=== PATIENT | male | born 1990 | race Caucasian/White ===

== ENCOUNTER 2019-05-16 08:19 | Inpatient (IN) ==
--- NOTE | 2019-05-16 08:51 | PROVIDER DOCUMENTATION ---
HPI-General Adult - General Chief Complaint: Abdominal Pain Stated Complaint: STOMACH PAIN Time Seen by Provider: 05/16/19 08:47 Source: patient, family Allergies/Adverse Reactions: Patient Allergies Allergy/AdvReac Type Severity Reaction Status Date / Time amoxicillin trihydrate * Allergy Severe ANAPHYLAXIS Verified 08/25/12 15:47 [From Augmentin] cefaclor [From Ceclor] Allergy Severe ANAPHYLAXIS Verified 08/25/12 15:48 metaproterenol sulfate * Allergy Severe RASH Verified 08/25/12 15:48 [From Alupent] metoclopramide HCl * Allergy Severe Unknown Verified 08/25/12 16:09 [From Reglan] potassium clavulanate * Allergy Severe ANAPHYLAXIS Verified 08/25/12 15:47 [From Augmentin] Home Medications: Home Medication List Medication Instructions Recorded Confirmed Last Taken Type Ondansetron Odt [Zofran 4 mg Odt] 4 mg PO Q6H PRN PRN 05/16/19 05/16/19 Unknown History - History of Present Illness -Gen Adult Nature of Presenting Problems: Pt. is 29 yom that presents with c/o abd pain with N/V/D. Pt. reports he was seen last night at [facility] and they gave him 2 bags of fluid and sent him home. Pt. reports a Hx of Lupus and gastroparesis. Pt. denies any other complaints. Location of Pain/Injury: reports: abdomen. denies: none, head, face, mouth, neck, chest, upper extremity, hand(s), back, pelvis, genitalia, lower extremity, feet, upper body, lower body, generalized, other Pain Radiation: reports: no radiation. denies: arm(s), back, buttocks, chest, epigastric, feet, groin, jaw, flank (L), legs (lower), LLQ, LUQ, neck, periumbilical, flank (R), RLQ, RUQ, shoulder(s), scapula, scrotal, sternal notch, suprapubic, legs (upper), urethral, vaginal, other Quality of Pain: reports: aching. denies: burning, pressure, tightness Severity: reports: moderate. denies: mild, severe Onset/Duration: reports: gradual, 2 days ago Timing: reports: still present. denies: improving, intermittent, getting worse Context/Activities at Onset: reports: none. denies: light activity, moderate activity, vigorous activity, recent emotional stress, recent physical stress, recent trauma history, possible bad food, cold exposure, eating, out of country travel, rest, sleep, sexual activity, other Modifying Factors: improves with: nothing Associated Symptoms: reports: diarrhea, nausea, vomiting. denies: denies symptoms, anxiety, arm pain, back/neck pain, chest pain, constipation, cough, diaphoresis, dizziness, EENT symptoms, fatigue, fever/chills, genitourinary problems, headaches, heartburn, joint pain, loss of appetite, malaise, muscle aches, sinus congestion/drainage, rash, seizure, shortness of breath, sensory/motor loss, pain with inspiration, swelling/mass in abdomen, syncope, weakness, trouble walking, other Similar Symptoms Previously?: Yes Recently seen or treated by another doctor?: Yes Review of Systems - Adult - REVIEW OF SYSTEMS - ADULT Constitutional: reports: no symptoms reported Eyes: reports: no symptoms reported Ears, Nose, Mouth & Throat: reports: no symptoms reported Cardiovascular: reports: no symptoms reported Respiratory: reports: no symptoms reported Gastrointestinal: reports: see HPI, abdominal pain, diarrhea, nausea, vomiting. denies: hematemesis, difficulty swallowing, frequent heartburn Genitourinary: reports: no symptoms reported Musculoskeletal: reports: no symptoms reported Integumentary: reports: no symptoms reported Neurological: reports: no symptoms reported Psychiatric: reports: no symptoms reported Past History - Adult - PAST MEDICAL HISTORY-ADULT Review of Records: reports: Old Records Reviewed, Nursing Assessment Review, Med ications Reviewed, Social history reviewed & non-contributory. - IMMUNIZATION STATUS Childhood Immunizations: See Nurse Assessment Flu Vaccine: See Nurse Assessment - FAMILY HISTORY Family History: reviewed, not pertinent - SOCIAL HISTORY Smoking: cigarettes, greater than 1 pack/day Provider spent 3-5 mins advising pt. on dangers of tobacco.: Discussed manners to quit use, and f/u contacts for add'l counseling. Physical Exam-General - PHYSICAL EXAM-ADULT Initial Vital Signs Reviewed: Yes - CONSTITUTIONAL General Appearance: no apparent distress, thin, other (Sleeping) - EYES Eyes: PERRL/EOMI, pink conjunctivae - HEAD, EARS, NOSE, MOUTH & THROAT HENMT: normocephalic/atraumatic, moist mucous membranes - NECK Neck: non-tender, full range of motion, supple, normal inspection - RESPIRATORY Respiratory: lungs clear, normal breath sounds - CARDIOVASCULAR Cardiovascular: regular rate, rhythm, no edema, tachycardia - GASTROINTESTINAL (ABDOMEN) Abdominal Exam: abnormal bowel sounds (hypoactive), tenderness. negative: guarding, rigid, rebound - LYMPHATIC Lymphatic: no adenopathy - MUSCULOSKELETAL Back Exam: normal inspection, no CVA tenderness, no vertebral tenderness Extremity: normal range of motion, non-tender, normal gait, normal inspection Peripheral Pulses: radial (R): 2+, radial (L): 2+ - SKIN Integumentary: normal color, normal turgor, warm/dry - NEUROLOGIC Neurologic: grossly normal, no motor/sensory deficits - PSYCHIATRIC Psych/Mental Status: normal mood/affect, normal thought content, normal thought process, oriented x 3. negative: anxious, paranoid, tearful Progress - PLAN OF CARE/RESULTS Progress/Plan/Lab Results: Vital Signs - 8 hr 05/16/19 08:24 Temperature 97.5 F L Pulse Rate 119 H Respiratory Rate 18 Blood Pressure 136/85 O2 Sat by Pulse Oximetry 100 Orders Category Date Time Status Saline Loc DIRECTED Care 05/16/19 08:34 Active NPO Diet 05/16/19 08:34 Active AMYLASE [CHEM] Stat Lab 05/16/19 08:34 Ordered CBC WITH ELECTRONIC DIFF [HEME] Stat Lab 05/16/19 08:34 Ordered COMPREHENSIVE METABOLIC PANEL [CHEM] Stat Lab 05/16/19 08:41 Ordered LIPASE [CHEM] Stat Lab 05/16/19 08:41 Ordered URINALYSIS W/POSS RFLX CULT [URINALYSIS] Stat Lab 05/16/19 08:34 Uncollected URINE DRUG SCREEN PL Stat Lab 05/16/19 08:50 Uncollected Laboratory Tests 05/16/19 05/16/19 05/16/19 08:50 08:50 08:50 WBC 7.21 RBC 4.27 L Hgb 10.6 L Hct 35.1 L MCV 82.2 MCH 24.8 L MCHC 30.2 L RDW Std Deviation 18.4 H Plt Count 420 H MPV 8.3 Immature Gran % (Auto) 0.1 Neut % (Auto) 63.5 Lymph % (Auto) 29.0 [place] % (Auto) 6.7 Eos % (Auto) 0.1 Baso % (Auto) 0.6 Immature Gran # (Auto) 0.01 Neut # (Auto) 4.58 Lymph # (Auto) 2.09 [place] # (Auto) 0.48 Eos # (Auto) 0.01 Baso # (Auto) 0.04 Sodium 146 H Potassium 3.8 Chloride 106 Carbon Dioxide 24 L Anion Gap 17 BUN 8 Creatinine 1.4 H Estimated GFR/1.73 m2 59 BUN/Creatinine Ratio 6 Glucose 140 H Calculated Osmolality 291 Calcium 9.1 Magnesium Total Bilirubin < 0.15 L AST 23 ALT 101 H Alkaline Phosphatase 67 Total Protein 7.4 Albumin 4.6 Globulin 3.0 Albumin/Globulin Ratio 2.0 Amylase 70 Lipase 44 Urine Source Urine Color Urine Turbidity Urine pH Ur Specific [place] Urine Protein Ur Glucose (Stick) Ur Ketones (Stick) Urine Blood Urine Nitrite Urine Bilirubin Urobilinogen Dipstick Urine Leukocytes Urine WBC (Auto) Urine RBC (Auto) U Epithel Cells (Auto) Urine Bacteria (Auto) Urine Opiates Screen Ur Oxycodone Screen Urine Methadone Screen U Propoxyphene Qual Ur Barbituates Screen Ur Tricyclics Screen Ur Phencyclidine Scrn Ur Amphetamines Screen U Methamphetamines Scrn U Benzodiazepines Scrn Urine Cocaine Screen U Cannabinoids Screen Plasma/Serum Ethyl Alc 05/16/19 05/16/19 05/16/19 08:50 08:50 09:10 WBC RBC Hgb Hct MCV MCH MCHC RDW Std Deviation Plt Count MPV Immature Gran % (Auto) Neut % (Auto) Lymph % (Auto) [place] % (Auto) Eos % (Auto) Baso % (Auto) Immature Gran # (Auto) Neut # (Auto) Lymph # (Auto) [place] # (Auto) Eos # (Auto) Baso # (Auto) Sodium Potassium Chloride Carbon Dioxide Anion Gap BUN Creatinine Estimated GFR/1.73 m2 BUN/Creatinine Ratio Glucose Calculated Osmolality Calcium Magnesium 2.4 Total Bilirubin AST ALT Alkaline Phosphatase Total Protein Albumin Globulin Albumin/Globulin Ratio Amylase Lipase Urine Source CATH Urine Color YELLOW Urine Turbidity CLEAR Urine pH 7.0 Ur Specific [place] 1.030 Urine Protein TRACE A Ur Glucose (Stick) NEGATIVE Ur Ketones (Stick) 20 A Urine Blood TRACE A Urine Nitrite NEGATIVE Urine Bilirubin NEGATIVE Urobilinogen Dipstick NORMAL Urine Leukocytes NEGATIVE Urine WBC (Auto) <10 Urine RBC (Auto) 10-20 A U Epithel Cells (Auto) <10 Urine Bacteria (Auto) NEGATIVE Urine Opiates Screen Ur Oxycodone Screen Urine Methadone Screen U Propoxyphene Qual Ur Barbituates Screen Ur Tricyclics Screen Ur Phencyclidine Scrn Ur Amphetamines Screen U Methamphetamines Scrn U Benzodiazepines Scrn Urine Cocaine Screen U Cannabinoids Screen Plasma/Serum Ethyl Alc 05/16/19 09:10 WBC RBC Hgb Hct MCV MCH MCHC RDW Std Deviation Plt Count MPV Immature Gran % (Auto) Neut % (Auto) Lymph % (Auto) [place] % (Auto) Eos % (Auto) Baso % (Auto) Immature Gran # (Auto) Neut # (Auto) Lymph # (Auto) [place] # (Auto) Eos # (Auto) Baso # (Auto) Sodium Potassium Chloride Carbon Dioxide Anion Gap BUN Creatinine Estimated GFR/1.73 m2 BUN/Creatinine Ratio Glucose Calculated Osmolality Calcium Magnesium Total Bilirubin AST ALT Alkaline Phosphatase Total Protein Albumin Globulin Albumin/Globulin Ratio Amylase Lipase Urine Source Urine Color Urine Turbidity Urine pH Ur Specific [place] Urine Protein Ur Glucose (Stick) Ur Ketones (Stick) Urine Blood Urine Nitrite Urine Bilirubin Urobilinogen Dipstick Urine Leukocytes Urine WBC (Auto) Urine RBC (Auto) U Epithel Cells (Auto) Urine Bacteria (Auto) Urine Opiates Screen NONE DETECTED Ur Oxycodone Screen NONE DETECTED Urine Methadone Screen NONE DETECTED U Propoxyphene Qual NONE DETECTED Ur Barbituates Screen NONE DETECTED Ur Tricyclics Screen NONE DETECTED Ur Phencyclidine Scrn NONE DETECTED Ur Amphetamines Screen NONE DETECTED U Methamphetamines Scrn NONE DETECTED U Benzodiazepines Scrn NONE DETECTED Urine Cocaine Screen NONE DETECTED U Cannabinoids Screen NONE DETECTED Plasma/Serum Ethyl Alc Dr. Henao at bedside for evaluation. Discussed results and plan of care with patient. Patient agrees with plan and verbalizes understanding. Result Diagrams: 05/16/19 08:50 05/16/19 08:50 - XRAY 1 XRAY Study: Chest, Abdomen ([facility] - [address], [address], [place] [address] [facility] - [address] [place] [address] Department of Imaging Patient: NOREEN LAZCANO Date: 05/16/19MR#: [id number] : 1990ADM Status: REG ERAcct#: [id number] Age/Sex: 29/MRoom/Bed: Loc: P.ED Ordering Physician: Chencho Cano Family Physician: Norbert Caldera Reason for Procedure: abd pain Signed EXAM: FLAT/UPRIGHT ABD/1 VIEW CHEST 05/16/2019 HISTORY: abd pain TECHNIQUE: Flat and upright abdomen with AP chest COMMENT: There is stool throughout much of the colon. The small bowel and stomach are not distended. There is no evidence of organomegaly or mass. There is opacification of the urinary bladder. There is no record of the patient having received contrast at this institution. There is no evidence of acute disease in the chest. IMPRESSION: Constipation. Bladder opacified and mildly distended of uncertain significance. Electronically signed by Brian Aguilar 05/16/2019 9:28 AM 05/16/19927 Interpreting Physician: Brian Aguilar MD Dictated Date/Time: 05/16/19924 cc: Chencho Cano; Norbert Caldera) XRAY Interpretation: See note - CT/MRI 1 CT Study: Head ([facility] - [address] [place] [address] [address], [place] [address] [facility] - [address] [place] [address] Department of Imaging Patient: NOREEN LAZCANO Date: 05/16/19MR#: [id number] : 1990ADM Status: REG ERAcct#: [id number] Age/Sex: 29/MRoom/Bed: Loc: P.ED Ordering Physician: Chencho Cano Family Physician: Norbert Caldera Reason for Procedure: ams Signed EXAM: CT HEAD W/O CONTRAST 05/16/2019 HISTORY: ams TECHNIQUE: This exam was performed using automated exposure control, adjustment of mA or kV according to patient size, and/or use of iterative reconstruction technique. COMMENT: There is no evidence of mass effect, bleed, or abnormal extra-axial fluid collection. The calvarium is intact. The visualized paranasal sinuses are clear. IMPRESSION: No evidence of acute intracranial disease. Electronically signed by Brian Aguilar 05/16/2019 10:22 AM 05/16/19 1022 Interpreting Physician: Brian Aguilar MD Dictated Date/Time: 05/16/19 1020 cc: Chencho Cano; Norbert Caldera) CT Results: See note - CONSULTS/PCP/HOSPITALIST Notification #1 *Consult/PCP/Hospitalist*: Dr. Graff Time Discussed: 11:14 Reason/Comments: Consult Consult Disposition: Will see in ED, Admit Departure - Departure Date of Disposition Decision: 05/16/19 Time of Disposition Decision: 11:13 DIAGNOSIS: Generalized weakness, Ataxia Disposition: ADMITTED INPATIENT 09 Certified Medical Emergency: Emergent Condition: Stable Referrals and Follow-Ups: Norbert Caldera [Primary Care Provider] - - Critical Care Note This patient required my direct & personal management of CC.: No Attestation - Physician/ POLLO Attestation Patient care was provided by Advanced Practice Provider:: Yes Advanced Practice Provider:: Chencho Cano Advanced Practice Provider documentation review:: The Mid-level provider documentation, treatment plan and medical decision making was reviewed by the physician who agrees with all treatment and medical decision making by the [facility]. The physician spent face to face time with patient:: Yes Advanced Practice Provider documentation review:: Supervising physician onsite and consulted in the evaluation and care of this patient. The physician did have a face to face encounter with the patient.
[2019-05-16] MEDS ORDERED: NS 1,000 ML IV ONE (08:59)
[2019-05-16 09:06] LABS: BASO# 0.04 X1000 (0.0-0.2); BASO% 0.6 % (0.0-0.8); EOS# 0.01 X1000 (0.0-0.7); EOS% 0.1 % (0.0-10.0); HEMATOCRIT 35.1 % (42.0-52.0); HEMOGLOBIN 10.6 g/dL (14.0-18.0); IMM GRAN# 0.01 X1000 (0.0-0.04); IMM GRAN% 0.1 % (0.0-0.5); LYMPH# 2.09 X1000 (1.2-3.4); MCH 24.8 PG (27-31); MCHC 30.2 g/dL (33-37); MCV 82.2 FL (81-99); MONO# 0.48 X1000 (0.11-0.59); MONO% 6.7 % (1.7-9.3); MPV 8.3 FL (7.4-10.4); NEUT# 4.58 X1000 (1.4-6.5); NEUT% 63.5 % (42.2-75.2); PLT 420 X1000 (130-400); RBC 4.27 XMIL (4.7-6.1); RDW 18.4 % (11.5-14.5); WBC 7.21 X1000 (4.8-10.8)
[2019-05-16 09:15] LABS: URINE SOURCE CATH
[2019-05-16 09:19] LABS: BILIRUBIN URINE NEGATIVE (NEGATIVE); BLOOD URINE TRACE (NEGATIVE); COLOR YELLOW; GLUCOSE URINE NEGATIVE (NEGATIVE); KETONE URINE 20 mg/dL (NEGATIVE); LEUKOCYTES URINE NEGATIVE (NEGATIVE); NITRITE URINE NEGATIVE (NEGATIVE); PROTEIN URINE TRACE mg/dL (NEGATIVE); TURBIDITY URINE CLEAR (CLEAR); UROBILINOGEN URINE NORMAL (NORMAL)
[2019-05-16 09:19] LABS: AGAP 17; ALBUMIN 4.6 g/dL (3.5-5.0); ALKALINE PHOSPHATASE 67 U/L (32-122); BUN 8 mg/dL (8-22); CALCIUM 9.1 mg/dL (8.8-10.2); CHLORIDE 106 mmol/L (98-107); COSMO 291; CREATININE 1.4 mg/dL (0.7-1.2); ESTIMATED GFR 59; GLUCOSE 140 mg/dL (70-104); GOT 23 U/L (10-34); GPT 101 U/L (10-44); LIPASE 44 U/L (13-60); POTASSIUM 3.8 mmol/L (3.5-5.1); SODIUM 146 mmol/L (136-145); TCO2 24 mmol/L (25-35); TOTAL BILIRUBIN < 0.15 mg/dL (0.20-1.00); TOTAL PROTEIN 7.4 g/dL (6.3-8.3)
[2019-05-16 09:20] LABS: UR EPITHELIAL CELLS <10 /HPF (<10); URINE BACTERIA NEGATIVE /HPF; URINE WBC <10 /HPF (<10)
[2019-05-16 09:27] LABS: UR AMPHETAMINES QUAL NONE DETECTED (NONE DETECT); UR BARBITUATES QUAL NONE DETECTED (NONE DETECT); UR BENZODIAZEPIN QUAL NONE DETECTED (NONE DETECT); UR CANNABINOIDS QUAL NONE DETECTED (NONE DETECT); UR COCAINE QUAL NONE DETECTED (NONE DETECT); UR METHADONE QUAL NONE DETECTED (NONE DETECT); UR METHAMPHETAMINE QUAL NONE DETECTED (NONE DETECT); UR OPIATES QUAL NONE DETECTED (NONE DETECT); UR OXYCODONE QUAL NONE DETECTED (NONE DETECT); UR PCP QUAL NONE DETECTED (NONE DETECT); UR PROPOXYPHENE QUAL NONE DETECTED (NONE DETECT); UR TCA QUAL NONE DETECTED (NONE DETECT)
--- NOTE | 2019-05-16 09:30 | Diag Imaging Result Doc PS360 ---
EXAM: FLAT/UPRIGHT ABD/1 VIEW CHEST 05/16/2019 HISTORY: abd pain TECHNIQUE: Flat and upright abdomen with AP chest COMMENT: There is stool throughout much of the colon. The small bowel and stomach are not distended. There is no evidence of organomegaly or mass. There is opacification of the urinary bladder. There is no record of the patient having received contrast at this institution. There is no evidence of acute disease in the chest. IMPRESSION: Constipation. Bladder opacified and mildly distended of uncertain significance. Electronically signed by Brian Aguilar 05/16/2019 9:28 AM
--- NOTE | 2019-05-16 10:24 | Diag Imaging Result Doc PS360 ---
EXAM: CT HEAD W/O CONTRAST 05/16/2019 HISTORY: ams TECHNIQUE: This exam was performed using automated exposure control, adjustment of mA or kV according to patient size, and/or use of iterative reconstruction technique. COMMENT: There is no evidence of mass effect, bleed, or abnormal extra-axial fluid collection. The calvarium is intact. The visualized paranasal sinuses are clear. IMPRESSION: No evidence of acute intracranial disease. Electronically signed by Brian Aguilar 05/16/2019 10:22 AM
[2019-05-16 11:39] LABS: BE 2.9 mmoll (-3.0-3.0); BLOOD TYPE ARTERIAL; HCO3-(ACT) 27.2 mmoll (20.0-26.0); METHB 1.4 % (0.0-1.5); O2(CT) 14.1 mL/dL (15.0-23.0); O2HB 95.3 % (95.0-99.0); PCO2(98.6) 39 mmHg (35-45); PO2(98.6) 105 mmHg (60-100); SAMPLE BLOOD; SAO2 99.2 % (95.0-100.0); THB 10.4 g/dL (11.5-17.4); pH(98.6) 7.45 (7.35-7.45)
[2019-05-16 11:41] LABS: ALLEN TEST YES; MODALITY ROOM AIR
[2019-05-16] MEDS ORDERED: ZOFRAN IV PRN (12:00)
[2019-05-16] MEDS: NS 1,000 ML IV PRN ×2 (12:11→22:56)
[2019-05-16 12:31] LABS: IRON SATURATION 6 %; TIBC 404 ug/dL; TOTAL IRON 25 ug/dL (53-167); UNBOUND IRON 379 ug/dL (112-346)
--- NOTE | 2019-05-16 12:56 | HISTORY AND PHYSICAL ---
ADDENDUM: The patient was seen and examined by myself. Full note dictated and discussed with nurse practitioner. The patient presented to the hospital with a 2-day history of continued worsening generalized weakness. Apparently 2 days ago, he was up walking about, although was weak. Over the last 2 days, he has been unable to stand, unable to care for himself. States he has been diagnosed with lupus in the past. The patient is able to move all 4 extremities, although does have generalized weakness. Has the ability to raise his arms and legs against gravity, but not against resistance. cc: Chris Graff MD
[2019-05-16] MEDS ORDERED: DULCOLAX PR ONE (13:45)
--- NOTE | 2019-05-16 14:22 | HISTORY AND PHYSICAL ---
PRIMARY CARE PROVIDER: Dr. Norbert Caldera. CHIEF COMPLAINT: Weakness and abdominal pain. HISTORY OF PRESENT ILLNESS: Mr. Ashkan More is a 29-year-old, male, who presents here significantly anorexic with very poor dentition and essentially nonverbal. He has a medical history of ADHD, anxiety, depression, reported lupus, and gastroparesis. It was very difficult to get information from him as he had some signs of expressive aphasia. He was able to finally tell me his name and what year it was, but then when I would ask other questions, he would answer with just one word. Towards the end of the conversation, from what I could gather from him, a lot of the answers were just yes and no questions. He did say thank you and started crying. As far as the assessment goes, he has a generalized weakness. He did complain of pain in his abdomen. It is right behind the navel. When I asked him about diarrhea or constipation, the answer was yes to both, and then I said you are going to have to say either constipation or diarrhea, you either have one or the other, and he said diarrhea. He said he was throwing up. He admitted to smoking cigarettes, but denied any alcohol or illicit drugs. It was just really difficult to get information from him, and there was no family at the bedside. He states that he lives alone. There is reported weakness that had progressively gotten worse over the last 2 days. He apparently went to [facility], where they gave him two bags of fluids and sent him home. There was a CT scan of the abdomen and pelvis performed there that did not show any significant abnormalities. There was nothing acute going on. However, he continues to have nausea, vomiting, and according to him, he has diarrhea as well, with abdominal pain behind the umbilicus. The weakness is generalized during the assessment. He is probably about a 3/5 on all extremities. He denied numbness or tingling during the assessment. He denied any use of drugs, but it looks like there could possibly be some old track ratliff along the arms, nothing new, and his urine drug screen was negative. PAST MEDICAL HISTORY: 1. ADHD. When further questioning him about bipolar or schizophrenia, his only answer was "I don't know." 2. Hypospadia. 3. Anxiety, depression. 4. Reported lupus. 5. Gastroparesis. 6. Anorexia. PAST SURGICAL HISTORY: Essentially was unable to obtain, but by Dr. Cordova back in 2012, he had a cystoscopy done secondary to hypospadias and suspected urethral stenosis with frequency, bladder obstruction, without urethral stenosis apparent. At that time, they put him on Flomax, and they also discharged him home on Zofran. SOCIAL HISTORY: He said yes to smoking. He could not give me any details about how much or for how long. He said no to alcohol or illicit drug use. He said he lives at home alone, and proceeded to actually give me the address. FAMILY HISTORY: Unable to obtain. ALLERGIES: Augmentin, Ceclor, Alupent, Reglan. HOME MEDICATIONS: Zofran is listed, but back in February, he had prescriptions filled for Zofran, Phenergan, Percocet, on Adderall. REVIEW OF SYSTEMS: Difficult to obtain, but as far as I could get out of him, his 14-point review of systems was negative, except for those mentioned in the above HPI. PHYSICAL EXAMINATION: VITAL SIGNS: Temperature 97.5 degrees, heart rate 121, respiratory rate 24, blood pressure 125/71, O2 saturation 100% on room air. GENERAL: Mr. Ashkan More is a 29-year-old, cachectic man. He is in no acute distress, but he has very difficult times trying to answer questions, and sometimes repeats himself with the same answer that is inaccurate for the question being asked. HEENT: Atraumatic, normocephalic. Pupils equal, round, reactive to light. Extraocular movements intact. Mucous membranes are moist. Dentition is significantly poor. Nearly every tooth, especially in the bottom are essentially rotting. NECK: Trachea midline. CARDIOVASCULAR: S1, S2. Tachycardic rate and rhythm. No rubs, gallops, murmurs. No lower extremity edema. There are +2 dorsalis and radial pulses. Negative JVD or carotid bruits. PULMONARY: Clear to auscultation. Bilateral breath sounds. No accessory muscle use or work of breathing noted. GASTROINTESTINAL: Soft. Tender in the midabdomen region with positive bowel sounds x4. EXTREMITIES: Moves all extremities equally, about a 3, maybe even up to a 4/5 strength with significantly decreased range of motion. NEUROLOGIC: Oriented to name and year. Showed signs of expressive aphasia. There was no receptive aphasia. He was able to perform all tasks that were asked. Sensory is intact. SKIN: Warm, dry, intact. LABORATORY DATA: White blood cells 7000, hemoglobin 10, hematocrit 35, platelet count 420,000. ABGs on room air show pH 7.45, pCO2 of 39, PO2 of 105, bicarb 27, base excess 2.9, saturation 95%. Lactate 1.0. Sodium 146, potassium 3.8, BUN 8, creatinine is 1.4, glucose 140, calcium 9.1. Phosphorus 4.1, magnesium 2.4. Iron is 25, total iron binding capacity is 404, saturation 6, unsaturated 379, ferritin still pending. Bilirubin is less than 0.15, AST 23, ALT 101, albumin is 4.6. Amylase 70, lipase 44. Vitamin B12 of 685. TSH is 0.06. Cortisol is 18.9. Urinalysis: Trace protein, 20 ketones, trace blood, 10 to 20 red blood cells. Urine drug screen negative. Alcohol negative. IMAGING: Reported abdominopelvic CT performed in [facility] yesterday: No acute findings. Abdominal x-ray here: Constipation, with bladder opacified and mildly distended of uncertain significance. Head CT: No evidence of acute intracranial disease. ASSESSMENT AND PLAN: 1. Generalized weakness could be from dehydration. There is not really a good way to get information from the patient to find out if it was an ascending weakness that would indicate something such as Guillain-Lucas as he is recently having stomach issues, like nausea, vomiting, and diarrhea. We are going to transfer to [facility], and consult Neurology for any further recommendations. 2. There is some form of encephalopathy with some expressive aphasia. He tends to repeat the same answer for different questions. Possibly, there is a psychiatric underlying condition here. 3. Attention-deficit/hyperactivity disorder, anxiety, depression. He takes Adderall or has so in the past because he had a prescription in February. He is also anorexic and does not take very good care of himself, has very poor dentition, so there is definitely some sort of underlying psychiatric disorder unmedicated, and will probably need a [facility] consult once we get him stabilized. 4. Abdominal pain with reported nausea, vomiting, and diarrhea. He nodded yes to dizziness, lightheadedness, and chills. There is a report of the abdominopelvic CT from yesterday at [facility] that does not show any acute findings. Abdominal x-ray here shows constipation, but he states he is having some diarrhea. Of course, that may it be an inaccurate statement as he has had issues with expressive aphasia today. Full abdominal ultrasound has been ordered, and antiemetics. 5. Acute kidney injury possibly. There is really no previous creatinine to compare it to, but it is 1.4. However, the BUN is normal, and so he will get some intravenous fluid hydration. Will get a renal ultrasound. 6. Hyperglycemia. Will check a hemoglobin A1c. 7. Anemia. Iron level is a little bit low. Vitals are stable. Will monitor it on a daily basis. Will also check a stool for blood. 8. Tobacco abuse. Cessation discussed. 9. History of hypospadias with cystoscopy by Dr. Cordova, and the abdominal x-ray is reporting bladder opacification and mildly distended. Will follow up with the ultrasound, and if he has urinary retention, given this mild acute kidney injury, may end up having to put a Mei catheter in. It looks like back in 2012, when he had the cystoscopy, postoperative diagnosis did not show any urethral stenosis, and the report shows grade 1 trabeculations were noted within the urinary bladder, more consistent in this examination with neurogenic dysfunction, but it did not show any tumor, stones, ulcerations, or polyps, and at that time, they put him on Flomax, which he is not on now. 10. Reported lupus. No medications for that. Cortisol level is normal. 11. Mild elevation in the ALT, and given his anorexia as well, will probably get a hepatitis panel, along with a human immunodeficiency virus panel. 12. Deep venous thrombosis prophylaxis. Sequential compression devices. Dictated by GEORGE Carey for Chris Graff MD cc: GEORGE Carey MD
[2019-05-16 14:45] LABS: HEMOGLOBIN A1C 5.3 % (4.8-6.0)
[2019-05-16 14:47] LABS: FERRITIN 42 ng/mL (30-400)
[2019-05-16 14:56] LABS: OCCULT BLOOD 1 NEGATIVE (NEGATIVE)
--- NOTE | 2019-05-16 15:27 | Diag Imaging Result Doc PS360 ---
EXAM: US RENAL 2 (RETROPER) COMPLETE 05/16/2019 HISTORY: abd pain TECHNIQUE: Renal ultrasound COMMENT: There is no evidence of hydronephrosis or mass. The right kidney is 10.9 x 5.3 x 4.7 cm, the left kidney is 10.5 x 5.1 x 4.2 cm. The prevoid volume of the bladder is 466.8 mL and postvoid is 74.3 mL. IMPRESSION: No evidence of obstructive uropathy. Small post void residual in the bladder. Electronically signed by Brian Aguilar 05/16/2019 3:25 PM
[2019-05-16 15:33] LABS: AMYLASE 65 U/L (20-200); LIPASE 40 U/L (13-60)
--- NOTE | 2019-05-16 15:37 | Diag Imaging Result Doc PS360 ---
EXAM: US ABDOMEN-COMPLETE 05/16/2019 HISTORY: abd pain; n/v TECHNIQUE: Abdominal ultrasound COMMENT: The visualized portion of the pancreas is within normal limits. The aorta and inferior vena cava are normal in appearance. The liver is unremarkable. The gallbladder is clear and nontender. There is no evidence of biliary dilatation the common bile duct measuring 2 mm. The right kidney is without evidence of hydronephrosis or mass and the left kidney is also unremarkable in appearance. The spleen is not enlarged. There are no abnormal fluid collections. IMPRESSION: Normal abdominal ultrasound. Electronically signed by Brian Aguilar 05/16/2019 3:34 PM
[2019-05-16] MEDS: TYLENOL PO PRN (17:03)
[2019-05-16] MEDS: PRILOSEC PO SCH (22:01)
[2019-05-17] MEDS: TYLENOL PO PRN ×3 (02:11→18:23)
[2019-05-17 06:49] LABS: BASO# 0.04 X1000 (0.0-0.2); BASO% 0.6 % (0.0-0.8); EOS# 0.02 X1000 (0.0-0.7); EOS% 0.3 % (0.0-10.0); HEMATOCRIT 30.2 % (42.0-52.0); HEMOGLOBIN 9.2 g/dL (14.0-18.0); LYMPH# 1.75 X1000 (1.2-3.4); MCHC 30.5 g/dL (33-37); MCV 82.1 FL (81-99); MONO# 0.37 X1000 (0.11-0.59); MONO% 5.5 % (1.7-9.3); MPV 8.6 FL (7.4-10.4); NEUT# 4.56 X1000 (1.4-6.5); NEUT% 67.6 % (42.2-75.2); PLT 421 X1000 (130-400); RBC 3.68 XMIL (4.7-6.1); RDW 18.2 % (11.5-14.5); WBC 6.74 X1000 (4.8-10.8)
[2019-05-17 07:20] LABS: AGAP 10; ALB/GLOB RATIO 1.5; ALBUMIN 3.8 g/dL (3.5-5.0); ALKALINE PHOSPHATASE 51 U/L (32-122); BUN 3 mg/dL (8-22); CHLORIDE 109 mmol/L (98-107); COSMO 284; CREATININE 1.2 mg/dL (0.7-1.2); ESTIMATED GFR > 60; GLUCOSE 106 mg/dL (70-104); GOT 14 U/L (10-34); GPT 66 U/L (10-44); MAGNESIUM 2.1 mg/dL (1.5-2.7); POTASSIUM 4.1 mmol/L (3.5-5.1); SODIUM 144 mmol/L (136-145); TCO2 25 mmol/L (25-35); TOTAL BILIRUBIN < 0.15 mg/dL (0.20-1.00); TOTAL PROTEIN 6.3 g/dL (6.3-8.3)
[2019-05-17] MEDS: PRILOSEC PO SCH ×3 (07:43→20:45)
[2019-05-17 09:18] LABS: PREALBUMIN 30.1 mg/dL (20-40)
[2019-05-17] MEDS: NS 1,000 ML IV PRN (09:18)
--- NOTE | 2019-05-17 13:22 | NEUROLOGY CONSULTATION ---
DATE: 05/17/2019 LOCATION: Room 218. HISTORY OF PRESENT ILLNESS: Mr. More is 29 years old. He reports feeling weak all over a few days ago. He recalls not feeling well through that day, having some nausea and feeling generally weak with no energy. There was never focal weakness or other focal neurologic feature. He seems to have a memory gap for part of that day 2 days ago. Mother at the bedside reports he was "incoherent" and lethargic. He was brought to the emergency room, evaluated, and admitted. He feels completely recovered to baseline now. There is no history of prior stroke, serious head injury, seizure, other CT TECH event. He has never had any diagnosed neuromuscular problem. He has lost about 8 or 9 pounds in the last year by mother's report. He has had a good bit of nausea and vomiting. Mother reports prior diagnosis of gastroparesis. He reports recent diagnosis of rheumatoid arthritis, and he reports having occasional red discoloration across the face bilaterally. He reports doctors have questioned lupus as explanation in the recent past. He reports stopping Adderall and Valium a few months ago. He has not made any other recent medication changes. He denies illicit drug use. Workup here includes lab showing TSH 0.6. I do not see free T4 reported in this computer system. We do not have sedimentation rate or CK reported. Chemistry showed initially elevated ALT 101, later 66. AST and alkaline phosphatase were normal. He has mild anemia. Urine drug screen was all negative on presentation. Noncontrast CT of the head is unremarkable. He has been afebrile here. Heart rate has ranged 80s to 120s. Systolic blood pressures have ranged 100s to 130s. On exam, Mr. More is awake, alert, attentive, appropriate. He is completely oriented to all parameters. He discussed some recent news accurately. Speech is not dysarthric. Language function is intact on bedside testing. Remote memory is good. Head and neck are unremarkable. There is no meningismus. Visual esteves are full, tested by confrontational finger counting. Pupils are large and both react to bright light. Extraocular movements are full. Facial motility is symmetric. Gag is intact. Tongue is midline. He can hear. Shoulder shrug is equal. Strength is normal in the arms and legs. He is generally thin, but I do not see focal atrophy or fasciculation. Reflexes are inconsistent, but trace at best at the ankles and knees, 1+ at the wrists. Plantar response is silent bilaterally. Proprioception is good at the great toe MTP joint bilaterally. He reports good pinprick and light touch appreciation over the limbs symmetrically. I did not test his gait. IMPRESSION: Recent episode with transient altered awareness, memory gap, transient incoherence, generalized malaise and fatigue. I do not find evidence of a definite motor deficit. I do not have any specific suggestion from purely neurologic standpoint. If there is concern for autoimmune neuromuscular problem, nerve conduction and EMG might be considered electively. I would consider checking sedimentation rate, CK, and thyroid unless those have recently been done as an outpatient. Thank you for asking Neurology to see Mr. More. cc: MD JIGAR Karimi III
[2019-05-17] MEDS ORDERED: LAMICTAL PO SCH (13:45)
[2019-05-17] MEDS ORDERED: ABILIFY PO SCH (13:45)
[2019-05-17] MEDS ORDERED: ADDERALL PO SCH (13:45)
[2019-05-17] MEDS ORDERED: FERRLECIT 125 MG in NS 100 ML IV ONE (14:57)
[2019-05-17] MEDS ORDERED: NS 1,000 ML IV ONE (14:58)
[2019-05-17] MEDS: ADDERALL PO SCH (15:19)
[2019-05-17] MEDS: KLONOPIN PO PRN ×2 (15:19→21:34)
[2019-05-17] MEDS: LOMOTIL PO PRN ×2 (15:19→21:34)
--- NOTE | 2019-05-17 15:23 | PROGRESS NOTE ---
DATE: 05/17/2019 SUBJECTIVE: Patient has no major complaints. OBJECTIVE: Vital signs: Blood pressure is 121/79, heart rate of 80, respiratory rate 16, temperature 98.1 degrees, 100% on room air. Cardiovascular: Regular rate and rhythm. Pulmonary: Bilateral breath sounds. Clear to auscultation. GI: Soft, nontender, nondistended. Bowel sounds are positive. LABORATORY DATA: White count 6, hemoglobin and hematocrit 9 and 30, platelets 421,000. Basic was normal. TSH was very low but the free T4 was normal. His cortisol level was normal. B12 was normal. Folate was normal. PROBLEM LIST: Generalized weakness, really unclear etiology. Not entirely sure what is causing his issue. His TSH was abnormal but the free T4 is normal, so I think it is unlikely this is hyperthyroidism. We may need to do the nerve conduction studies, but they recommended doing that electively. But he does seem to be getting up and around, so we are going to kind of continue to follow closely. I think he is probably okay to go to the floor. He is requesting Adderall and Valium. I am going to probably just do Klonopin on him. I am not entirely sure this may not also be psychiatric because he has been on Abilify and Lamictal before and unclear what the source is or what purpose he was on those medications for, so pending. We will continue to monitor closely. cc: Rangel Chawla MD
[2019-05-17 17:33] LABS: HIV ANTIBODY SCREEN SEE COMMENTS
[2019-05-18] MEDS: LOMOTIL PO PRN ×3 (03:07→16:37)
[2019-05-18] MEDS: KLONOPIN PO PRN ×4 (03:07→21:29)
[2019-05-18 07:49] LABS: AGAP 11; ALB/GLOB RATIO 1.4; ALBUMIN 3.8 g/dL (3.5-5.0); ALKALINE PHOSPHATASE 55 U/L (32-122); BUN 2 mg/dL (8-22); CALCIUM 8.9 mg/dL (8.8-10.2); CHLORIDE 105 mmol/L (98-107); COSMO 279; ESTIMATED GFR > 60; GLUCOSE 101 mg/dL (70-104); GOT 12 U/L (10-34); GPT 51 U/L (10-44); MAGNESIUM 1.8 mg/dL (1.5-2.7); POTASSIUM 3.9 mmol/L (3.5-5.1); SODIUM 142 mmol/L (136-145); TCO2 26 mmol/L (25-35); TOTAL BILIRUBIN 0.28 mg/dL (0.20-1.00); TOTAL PROTEIN 6.5 g/dL (6.3-8.3)
[2019-05-18 08:08] LABS: BASO# 0.04 X1000 (0.0-0.2); BASO% 0.6 % (0.0-0.8); EOS% 1.5 % (0.0-10.0); HEMOGLOBIN 9.2 g/dL (14.0-18.0); LYMPH# 1.27 X1000 (1.2-3.4); LYMPH% 19.3 % (20.5-51.1); MCH 25.7 PG (27-31); MCHC 30.7 g/dL (33-37); MCV 83.8 FL (81-99); MONO# 0.59 X1000 (0.11-0.59); NEUT# 4.58 X1000 (1.4-6.5); NEUT% 69.6 % (42.2-75.2); PLT 387 X1000 (130-400); RBC 3.58 XMIL (4.7-6.1); RDW 18.1 % (11.5-14.5); WBC 6.58 X1000 (4.8-10.8)
[2019-05-18] MEDS: ADDERALL PO SCH (10:29)
[2019-05-18] MEDS: PRILOSEC PO SCH ×2 (11:57→21:29)
[2019-05-18 14:06] LABS: HEPATITIS PROFILE ACUTE SEE COMMENTS
--- NOTE | 2019-05-18 16:51 | PROGRESS NOTE ---
DATE: 05/18/2019 SUBJECTIVE: Patient has no major complaints. He is feeling better and more energy. His heart rate though jumped up into the 130s and sustained with just minimal exertion. OBJECTIVE: Blood pressure 113/98, heart rate 107, respiratory 16, temperature 97.6 degrees, and 100% on room air.Cardiovascular: Regular rate and rhythm. Pulmonary: Bilateral breath sounds. Clear to auscultation. GI: Soft. Nontender. Nondistended. Bowel sounds are positive. LABORATORY: White count 6, hemoglobin and hematocrit 9 and 30, and platelets 387,000. Basic was normal except for an ALT was up a bit. Free T3 was normal. Heme negative. Hepatitis panel was negative. HIV panel was negative. PROBLEM LIST: 1. Generalized weakness. It is unclear if this is neurological. It seems to have pretty much stopped or resolved, but he is very anemic. Reportedly, he has a history of lupus, but I do not really see any indication of lupus, but he has iron deficiency anemia. His total iron is low. His iron sat is 6%. His ferritin is 42, which is normal, but he is underweight. His BMI is 113. One of his initial complaints was diarrhea. I am not entirely sure. He has got anorexia, but I am not entirely sure this may not be celiac sprue or at least the affects of Adderall, which I have encouraged him to stop. He says it helps him so he needs treatment. I have sent off the labs for sprue, but I think he may need a colonoscopy. The amphetamine's certainly would explain his anorexia, but it would not explain his anemia. His CRP is normal, and sedimentation rate is normal which would argue against inflammatory bowel disease and/or lupus. There is no other constellation of findings to be consistent with lupus so we will observe him till tomorrow. 2. Tachycardia. I think that again is probably related to his amphetamine use, which I have stopped. I am going to encourage him not to do that. We will get an echo when available and follow. cc: Rangel Chawla MD
[2019-05-18] MEDS: TYLENOL PO PRN (21:29)
[2019-05-19] MEDS: TYLENOL PO PRN ×2 (03:28→21:17)
[2019-05-19] MEDS: KLONOPIN PO PRN ×4 (03:28→21:13)
[2019-05-19 07:12] LABS: BASO# 0.03 X1000 (0.0-0.2); BASO% 0.8 % (0.0-0.8); EOS% 2.7 % (0.0-10.0); HEMATOCRIT 34.6 % (42.0-52.0); HEMOGLOBIN 10.3 g/dL (14.0-18.0); LYMPH# 1.15 X1000 (1.2-3.4); LYMPH% 30.9 % (20.5-51.1); MCH 24.8 PG (27-31); MCHC 29.8 g/dL (33-37); MCV 83.4 FL (81-99); MONO# 0.39 X1000 (0.11-0.59); MONO% 10.5 % (1.7-9.3); NEUT# 2.05 X1000 (1.4-6.5); NEUT% 55.1 % (42.2-75.2); PLT 394 X1000 (130-400); RBC 4.15 XMIL (4.7-6.1); RDW 17.6 % (11.5-14.5); WBC 3.72 X1000 (4.8-10.8)
[2019-05-19 07:48] LABS: AGAP 13; ALB/GLOB RATIO 1.7; ALBUMIN 4.5 g/dL (3.5-5.0); ALKALINE PHOSPHATASE 66 U/L (32-122); BUN 7 mg/dL (8-22); CALCIUM 10.2 mg/dL (8.8-10.2); CHLORIDE 102 mmol/L (98-107); COSMO 281; CREATININE 0.9 mg/dL (0.7-1.2); ESTIMATED GFR > 60; GLUCOSE 93 mg/dL (70-104); GOT 13 U/L (10-34); GPT 48 U/L (10-44); MAGNESIUM 2.1 mg/dL (1.5-2.7); POTASSIUM 4.2 mmol/L (3.5-5.1); SODIUM 142 mmol/L (136-145); TCO2 27 mmol/L (25-35); TOTAL BILIRUBIN 0.24 mg/dL (0.20-1.00); TOTAL PROTEIN 7.2 g/dL (6.3-8.3)
[2019-05-19] MEDS: PRILOSEC PO SCH ×2 (08:48→21:13)
[2019-05-19] MEDS: LOMOTIL PO PRN ×3 (10:20→21:13)
--- NOTE | 2019-05-19 12:59 | ECHO REPORT ---
ORDER DATE: 05/19/2019 INDICATIONS: CVA, dehydration. FINDINGS: 1. The right atrium is probably normal in size at 4.1 cm. 2. Mild tricuspid regurgitation. RV systolic pressure of 26. 3. Normal RV size and systolic function. 4. No significant pulmonic insufficiency. 5. Normal left atrial size at 3.2 cm. 6. No mitral valve prolapse. Mild mitral regurgitation. 7. Normal LV size, end-diastolic dimension of 4.3. Normal wall thicknesses with a posterior and interventricular septal wall thickness of s 0.6 and 0.7 cm respectively. Normal LV systolic function. The estimated EF is in the 55 to 60 percent range. Normal wall motion. 8. Aortic valve opens well. No evidence of stenosis or insufficiency. 9. Aorta appears normal in visualized segments. 10. No pericardial effusion identified. cc: MD Rangel Lin MD
[2019-05-19] MEDS ORDERED: FERRLECIT 125 MG in NS 100 ML IV ONE (13:42)
--- NOTE | 2019-05-19 14:12 | PROGRESS NOTE ---
DATE: 05/19/2019 SUBJECTIVE: Patient has no complaints. OBJECTIVE: Blood pressure 103/77, heart rate 109, respiratory rate 22, temperature 97.6 degrees, and 99% on room air.Cardiovascular: Regular rate and rhythm. Pulmonary: Bilateral breath sounds. Clear to auscultation. GI: Soft, nontender, and nondistended. Bowel sounds are positive. LABORATORY: White count is 3.7, hemoglobin and hematocrit 10 and 34, and platelets of 394,000. Basic was normal. ASSESSMENT: Generalized weakness. We will continue to follow. Unclear what the etiology is, but he is very anemic for his age without a clear diagnosis. Again, I am concerned about sprue. According to the mother, he has frequent diarrhea. I do not see that he has had a ton of bowel movements so I think this could be completed as an outpatient. I have consulted GI to evaluate for sprue, and he will probably need follow-up as well. I anticipate possible discharge today if okay with GI, but I do think he needs endoscopy and small bowel biopsy at their discretion. cc: Rangel Chawla MD MTDD
[2019-05-20] MEDS: TYLENOL PO PRN (02:54)
[2019-05-20] MEDS: KLONOPIN PO PRN ×2 (02:54→12:23)
[2019-05-20 07:19] LABS: BASO# 0.03 X1000 (0.0-0.2); BASO% 0.6 % (0.0-0.8); EOS# 0.15 X1000 (0.0-0.7); EOS% 2.8 % (0.0-10.0); HEMATOCRIT 34.2 % (42.0-52.0); HEMOGLOBIN 10.3 g/dL (14.0-18.0); LYMPH# 1.47 X1000 (1.2-3.4); LYMPH% 27.3 % (20.5-51.1); MCH 25.2 PG (27-31); MCHC 30.1 g/dL (33-37); MCV 83.8 FL (81-99); MONO# 0.48 X1000 (0.11-0.59); MONO% 8.9 % (1.7-9.3); MPV 9.1 FL (7.4-10.4); NEUT# 3.25 X1000 (1.4-6.5); NEUT% 60.4 % (42.2-75.2); PLT 384 X1000 (130-400); RBC 4.08 XMIL (4.7-6.1); RDW 17.3 % (11.5-14.5); WBC 5.38 X1000 (4.8-10.8)
[2019-05-20 08:18] LABS: AGAP 12; ALB/GLOB RATIO 1.4; ALKALINE PHOSPHATASE 56 U/L (32-122); BUN 9 mg/dL (8-22); CALCIUM 9.6 mg/dL (8.8-10.2); CHLORIDE 104 mmol/L (98-107); COSMO 280; CREATININE 0.8 mg/dL (0.7-1.2); ESTIMATED GFR > 60; GLUCOSE 93 mg/dL (70-104); GOT 11 U/L (10-34); GPT 35 U/L (10-44); POTASSIUM 3.5 mmol/L (3.5-5.1); SODIUM 141 mmol/L (136-145); TCO2 25 mmol/L (25-35); TOTAL BILIRUBIN 0.27 mg/dL (0.20-1.00); TOTAL PROTEIN 6.9 g/dL (6.3-8.3)
--- NOTE | 2019-05-20 08:21 | GASTROENTEROLOGY CONSULTATION ---
DATE: 05/20/2019 REASON FOR CONSULTATION: Chronic diarrhea, nausea and vomiting, and iron deficiency anemia. HISTORY OF PRESENT ILLNESS: Mr. Ashkan More is a 29-year-old man with past medical history of rheumatoid arthritis, gastroparesis, and question of lupus who presented with progressive intractable postprandial nausea and vomiting that has gotten worsen over the last 3 months particularly over the last 3 to 4 days. The patient describes being diagnosed with gastroparesis in 2010 after having an EGD with Dr. Ann. At that time, he was treated with Reglan, which was discontinued secondary to the development of "ticks". The patient has not been taking any medication after that time, as he has lost his insurance, and was then unable to reestablish himself with GI. He says that after eating he develops nausea and vomiting after about 15 minutes. He denies any GERD or dysphagia. No early satiety or pain while eating. He has lost about 40 pounds in the last year, and lost 15 pounds in the last 6 months. No rectal bleeding or melena. Occasionally, he does have some coffee-grounds emesis. His mother at bedside reports that he is able to complete all of his meals, and still reports feeling hungry after eating. REVIEW OF SYSTEMS: As per HPI, otherwise 12 point review of systems is negative. He has been having some diarrhea since he has been in the hospital, but prior to this, the stools were regular at once daily. PAST MEDICAL HISTORY: As per HPI. PAST SURGICAL HISTORY: Bilateral testicular surgery and nasal surgery. MEDICATIONS: None. ALLERGIES: Augmentin, Ceclor, metaproterenol, and amoxicillin. FAMILY HISTORY: Brother has a history of Crohn's disease. SOCIAL HISTORY: A 1/4 pack per day smoker. No drug use or alcohol. PHYSICAL EXAMINATION: Vital Signs: Temperature 97.8 degrees, heart rate of 101, respiratory rate 16, blood pressure 102/61, and O2 saturation 100% on room air. General: Patient is awake, alert, and oriented in no acute distress. HEENT: Sclerae anicteric. He does have some pale conjunctiva. Moist mucous membranes. Neck: Supple. No JVD or lymphadenopathy. Cardiac: Regular rate and rhythm. No murmurs, rubs or gallops. Lungs: Clear to auscultation bilaterally. Abdomen: Soft, nontender, and nondistended. Normoactive bowel sounds. No rebound or guarding. Extremities: No clubbing, cyanosis, or edema. Neurologic: Nonfocal. LABORATORY: Sodium 142, potassium of 4.2, chloride of 102, bicarb 27, BUN of 7, and creatinine 0.9. Iron 25, ferritin of 43. LFTs show an ALT of 48, otherwise within normal limits. CRP is 0.350. Folate of 16.1. Vitamin B12 of 685. Lipase was 40. IMAGING: KUB shows constipation, bladder opacification, and mildly distended of uncertain significance. Head CT shows no acute intracranial disease. Abdominal ultrasound done on was normal. Renal ultrasound shows no evidence of obstructive uropathy. Small postvoid residual in the bladder. PROBLEM LIST: - N/V - Weight loss - JAMEY - Diarrhea - Gastroparesis - Coffee ground emesis ASSESSMENT AND PLAN: Mr. Ashkan More is a 29-year-old gentleman who carries a diagnosis of rheumatoid arthritis and gastroparesis who presented with progressive postprandial nausea, vomiting and weight loss, and iron deficiency anemia. The last EGD was in 2010, which was performed by Dr. Ann. No prior colonoscopy. His symptoms are suggestive of gastroparesis. However, he denies any early satiety, significant abdominal pain, or prior history of diabetes. We will plan to keep him NPO after midnight for diagnostic EGD in the morning. If that is negative, then he will probably need a colonoscopy prior to discharge home. We will continue to trend his hemoglobin and hematocrit. There are no signs of overt GI bleeding or iron deficiency anemia. He is on iron, which was started while he was in the hospital. For his diarrhea, we will check stool studies if it continues. He is currently on Lomotil. He is on IV fluids as well. We will follow with you. Please call with any questions or concerns. [facility] HEALTHL[facility]
[2019-05-20] MEDS ORDERED: ICAR-C PO SCH (09:00)
[2019-05-20] MEDS ORDERED: XYLOCAINE-MPF 2% ONE (10:53)
[2019-05-20] MEDS ORDERED: DIPRIVAN 1% ONE (10:53)
[2019-05-20] MEDS ORDERED: VERSED ONE (10:57)
--- NOTE | 2019-05-20 11:42 | ENDOSCOPY OPERATIVE NOTE ---
[facility] ENDOSCOPY OPERATIVE NOTE , EGD PROCEDURE REPORT EXAM DATE: 05/20/2019 PATIENT NAME: Ashkan More MR#: [id number] BIRTHDATE: 1990 ATTENDING: Cole Carson MD STATUS: inpatient CREDIT COMPLIANCE OFFICER: Alexander Cheng and Tammi Joiner INDICATIONS: The patient is a 29 yr old male here for an EGD due to Nausea Vomiting Weight loss Anem ia H/o gastroparesis diagnosed by Dr Ann, Rheumatoid Arthritis and anemia. PROCEDURE PERFORMED: EGD w/ biopsy MEDICATIONS: Per Anesthesia ESTIMATED BLOOD LOSS: None CONSENT: The patient understands the risks and benefits of the procedure and understands that these r isks include, but are not limited to: sedation, allergic reaction, infection, perforation and/or bleeding. Alternative means of evaluation and treatment include, among others: physical exam, x-rays, and/or surgical intervention. The patient elects to proceed with this endoscopic procedure. DESCRIPTION OF PROCEDURE: During pre-op preparation period all mechanical and medical equipment was c hecked for proper function. Hand hygiene and appropriate measures for infection prevention was taken. After the risks, benefits and alternatives of the procedure were thoroughly explained, Informed consent was verified, confirmed and timeout was successfully executed by the treatment team. The patient was anesthetized with topical anesthesia and the [id number] ([id number]) endoscope was introduced through the mouth and advanced to the second portion of the duoden um. Retroflexion was performed in the stomach and revealed no abnormalities. The gastroscope was then slowly withdraw n and removed. The patient's toleration of the procedure was good. ESOPHAGUS: Z line was noted at 45 cms. The mucosa of the esophagus appeared normal. STOMACH: Bile was noted in the stomach. Bile gastritis (inflammation) was found in the gastric antr um and gastric body. DUODENUM: The duodenal mucosa showed no abnormalities in the duodenal bulb, 1st part duodenum, and 2n d part duodenum. ADVERSE EVENTS: There were no complications. IMPRESSIONS: 1. Z line was noted at 45 cms 2. The mucosa of the esophagus appeared normal 3. Bile was noted in the stomach 4. Bile gastritis (inflammation) was found in the gastric antrum and gastric body 5. The duodenal mucosa showed no abnormalities in the duodenal bulb, 1st part duodenum, and 2nd part duodenum cold forceps biopsies were taken in the bulb and second portion RECOMMENDATIONS: 1. Await biopsy results 2. RTC 3 weeks Start carafate 1g every 6 hours for 4 weeks 3. Start Proton pump inhibitor daily - 30 minutes before a meal 4. Begin an anti-reflux lifestyle: avoid acidic foods and drinks (like coffee and soda), do not lie down three hours after eating, elevate the head of your bed 6 to 9 inches, stop smokiing and reduce weight if needed. 5. Await biopsy results 6. Fu on celiac panel May need colonoscopy as an outpatient if continues to be Anemic. REPEAT EXAM: Cole Carson MD eSigned: Cole Carson MD 05/20/2019 11:41 AM CC: CPT CODES: 57888 Upper gastrointestinal endoscopy including esophagus, stomach, and either the du odenum and/or jejunum as appropriate; with biopsy, single or multiple ICD CODES: 285.9 anemia,unspecified 535.40 Other specified gastritis (without hemorrhage) The ICD and CPT codes recommended by this software are interpretations from the data that the [facility] staff has captured with the software. The verification of the translation of this report to the ICD and CPT co kerline and modifiers is the sole responsibility of the health care institution and practicing physician where this report was generated. [employer] will not be held responsible for the validity of the ICD and CPT codes i ncluded on this report. [facility] assumes no liability for data contained or not contained herein. CPT is a registered tra demark of [employer]. PATIENT NAME: Ashkan More MR#: [id number]
[2019-05-20] MEDS: PRILOSEC PO SCH (12:23)
[2019-05-20] MEDS: LOMOTIL PO PRN (12:23)
[2019-05-20] MEDS ORDERED: CARAFATE PO SCH (13:00)
[2019-05-20 13:36] VITALS: BP 112/76
--- NOTE | 2019-05-20 20:27 | NEUROLOGY PROGRESS NOTE ---
DATE: 05/20/2019 Mr. More reports continued improvement in his strength. He does not notice focal weakness. He has been able to stand and walk to the bathroom unassisted. He reports he may be back to baseline, but family thinks he is still a little bit weak. Sedimentation rate was 12 and C-reactive protein 0.35. We do not have CK reported this admission. I do not think there is evidence of active myopathy or other specific neuromuscular problem. I do not think we need EMG urgently. If he does not continue to improve, we might consider elective outpatient EMG study. Thanks for asking Neurology to see Mr. More. cc: Joie Stack III, MD
[2019-05-20] MEDS ORDERED: PERIDEX MT SCH (21:00)
--- NOTE | 2019-05-20 21:22 | DISCHARGE SUMMARY ---
ADMISSION DATE: 05/16/2019 DISCHARGE DATE: 05/20/2019 DISCHARGE DISPOSITION: Home with family. DISCHARGE CONDITION: Hemodynamically stable. He had been tolerating regular diet well. He denies any more nausea, vomiting, abdominal pain. I had a detailed discussion with him and his mother at bedside about iron deficiency anemia, bile gastritis, suspicion of celiac disease. I counseled him about smoking cessation. I counseled him that he should follow up with his regular physician about anxiety management and I answered all of his questions. DISCHARGE DIAGNOSES: 1. Generalized weakness. 2. Recurrent nausea, vomiting, diarrhea, and abdominal pain with workup in progress with suspicion of celiac disease. 3. Acute bile gastritis. 4. Iron-deficiency anemia. 5. Kidney dysfunction due to intravascular volume depletion. 6. Active tobacco abuse. OTHER DIAGNOSES: 1. History of hypospadia with outpatient Urology follow-up. 2. Reported history of suspected lupus. 3. History of attention deficit hyperactivity disorder. 4. History of anxiety. 5. Reported history of gastroparesis. DISCHARGE MEDICATIONS: 1. Aripiprazole 10 mg daily. 2. Buspirone 10 mg daily. 3. Dextroamphetamine amphetamine 20 mg daily. 4. Lamotrigine 25 mg daily. 5. Zofran 4 mg every 6 hours as needed for nausea and vomiting. 6. Sucralfate 1 g every 6 hours for 120 tablets. 7. Iron carbonyl ascorbic acid 1 tablet daily, 90 tablets. 8. Omeprazole 40 mg daily, 30 capsules. VITALS: At the time of discharge: Temperature 97.7 degrees, pulse 73, respiratory rate 17, blood pressure 112/76, saturating 100% on room air. PHYSICAL EXAMINATION: General: He does appear to be lean and thin. HEENT: Oral cavity is moist. There are missing teeth. Lungs: Air entry bilaterally equal. No wheeze, rhonchi, crackles. Cardiovascular: S1 normal. No murmur or gallop. Abdomen: Soft, nontender. Extremity: No lower extremity edema. Neurologic: He is alert oriented x3. SIGNIFICANT LABS: At the time of discharge WBC 5.3, hemoglobin 10.3, platelet 384,000. Potassium 3.5, BUN 9, creatinine 0.8. His stool occult blood test was negative. His TSH was 0.06, though free T4 and T3 were largely within acceptable range. His tissue transglutaminase antibodies were negative. His hepatitis and HIV panel were negative. Microbiology: No data. IMAGING: Abdominal x-ray on presentation had constipation. Head CT on presentation did not have evidence of acute intracranial process. Abdominal ultrasound had normal abdominal ultrasound. Renal ultrasound did not have evidence of obstructive uropathy. Echocardiogram had ejection fraction of 55 to 60 percent with normal wall motion. PROCEDURES DURING HOSPITAL ADMISSION: Upper endoscopy on 05/20/2018 had detected the mucosa of esophagus appeared normal, bile was noted in the stomach, bile gastritis was found in the gastric antrum and gastric body, duodenal mucosa did not show any abnormality in the duodenal bulb, 1st part of duodenum and second port of duodenum and biopsies were taken from the duodenum. HOSPITAL COURSE SUMMARY: Mr. More is a 29-year-old man who initially presented on 05/16/2019 with chief complaints of weakness and abdominal pain. He also has some expressive aphasic and he was only able to mumble a few words. In the emergency room, he also mentioned that he has had repeated episodes of diarrhea and he appeared altered. So, the hospitalist team was consulted further management for symptomatic management of GI issues. He was also found to have acute kidney injury. He was started on intravenous fluids intravenous antiemetic and intravenous anti-acid medication following which his condition started improving. His lab showed iron deficiency with a saturation of 6% though his ferritin was also slightly low at 42, and he was started on intravenous iron. GI team was consulted for further management, since his symptoms were concerning for celiac disease. He underwent endoscopy and biopsies were taken. At the time of discharge, he is tolerating oral diet well. So it was decided to discharge him on proton pump inhibitors, sucralfate for his bile gastritis, and he was advised to have outpatient follow up with GI to discuss the biopsy report. Plan of care was extensively discussed with the patient and his mother at bedside. All of their questions have been satisfactorily answered. TIME SPENT: 28 minutes time was spent discharging this patient. cc: MD JIGAR Alston
== END 2019-05-20 17:35 | disposition home or self-care (01) | DRG 948 ==
LOC: P.ED 08:19 → P.EDIPHOLD 13:08 → SUATTDRO 13:08 → 4N 05-18 00:55
PROVIDERS: ATTEND Internal Medicine